=== PATIENT | male | born 2005 | race Caucasian/White ===

== ENCOUNTER 2025-06-03 16:54 | Inpatient (IN) | payer OTHER ==
[~2025-06-03] VITALS: Ht 180.3 cm; Wt 92.2 kg
[2025-06-03] MEDS: NS (Normal Saline) 0.9% 1,000 ML IV ONE ×2 (17:13→18:24)
[2025-06-03 17:26] LABS: PLATELET COUNT, AUTOMATED 236 10^3/uL (150-450)
[2025-06-03 17:45] LABS: CALCIUM LEVEL 10.3 MG/DL (8.5-10.1); CARBON DIOXIDE LEVEL 24.0 MMOL/L (20-31); CHLORIDE LEVEL 104.0 MMOL/L (98-107); CPK CREATINE PHOSPHOKINASE 1049.0 U/L (46-171); CREATININE FOR GFR 2.26 MG/DL (0.70-1.30); GLOMERULAR FILTRATION RATE 41.3 (>60); POTASSIUM SERUM 3.4 MMOL/L (3.5-5.1); SODIUM LEVEL 143.0 MMOL/L (136-145)
[2025-06-03] MEDS: POTASSIUM CHLORIDE 10MEQ SR TABLET PO ONE (18:45)
[2025-06-03] MEDS ORDERED: HOME MED LIST COMPLETE! XX SCH (19:25)
[2025-06-03] MEDS: NS (Normal Saline) 0.9% 1,000 ML IV SCH (19:35)
[2025-06-03 20:00] VITALS: TEMP 98.6
[2025-06-04 07:25] LABS: BASO # 0.0 10^3/uL (0.0-0.2); BASO % 0.2 % (0.0-1.0); EOS # 0.0 10^3/uL (0.0-0.5); EOS % 0.4 % (0.0-3.0); LYMPH # 2.8 10^3/uL (1.5-5.0); LYMPH % 35.2 % (24.0-44.0); MONO # 1.1 10^3/uL (0.0-0.8); MONO % 13.6 % (2.0-8.0); NEUTROPHILS # 4.1 10^3/uL (1.5-8.5); NEUTROPHILS % 50.2 % (36.0-66.0); PLATELET COUNT, AUTOMATED 186 10^3/uL (150-450)
[2025-06-04 07:54] LABS: CPK CREATINE PHOSPHOKINASE 1051 U/L (46-171)
[2025-06-04 07:59] LABS: ALT/SGPT 36 U/L (7.0-40); AST/SGOT 37 U/L (<34); CALCIUM LEVEL 8.4 MG/DL (8.5-10.1); CARBON DIOXIDE LEVEL 25 MMOL/L (20-31); CHLORIDE LEVEL 105 MMOL/L (98-107); CREATININE FOR GFR 1.06 MG/DL (0.70-1.30); GLOMERULAR FILTRATION RATE > 90.0 (>60); PHOSPHORUS LEVEL 3.5 MG/DL (2.5-4.9); POTASSIUM SERUM 3.6 MMOL/L (3.5-5.1); PTH INTACT 84.0 PG/ML (18.5-88.0); SODIUM LEVEL 141 MMOL/L (136-145); TOTAL 25(OH) VITAMIN D 32.4 NG/ML (20.0-100.0)
[2025-06-04] MEDS ORDERED: ENOXAPARIN 40 MG/0.4 ML SYRINGE (J1650 PER 10MG) SC SCH (09:00)
[2025-06-04 10:27] LABS: APPEARANCE, URINE HAZY (CLEAR); BACTERIA, URINE AUTO NEGATIVE (NEGATIVE); BILIRUBIN, URINE AUTO NEGATIVE (NEGATIVE); BLOOD, URINE BLOOD NEGATIVE (NEGATIVE); GLUCOSE, URINE (UA) AUTO NEGATIVE (NEGATIVE); KETONE, URINE AUTO NEGATIVE (NEGATIVE); LEUKOCYTE ESTERASE, URINE AUTO NEGATIVE (NEGATIVE); MUCUS, URINE SMALL (NEGATIVE); NITRITE, URINE AUTO NEGATIVE (NEGATIVE); PROTEIN, URINE AUTO NEGATIVE (NEGATIVE); RBC, URINE AUTO 1 /HPF (0-3); SPECIFIC GRAVITY URINE AUTO 1.020 (1.002-1.035); SQUAMOUS EPITHELIAL CELL UR AU 0 /HPF (0-6); UROBILINOGEN, URINE AUTO 0.2 mg/dL (0.0-2.0); WBC, URINE AUTO 1 /HPF (0-3)
[2025-06-04 12:00] VITALS: BP 129/71; O2SAT 100
[2025-06-04] MEDS: NS (Normal Saline) 0.9% 1,000 ML IV ONE ×2 (12:26→13:05)
[2025-06-04] MEDS ORDERED: HEPARIN SOD 5000 UNITS/ML 1 ML VIAL/SYRINGE SC SCH (14:00)
== END 2025-06-04 17:00 | disposition home or self-care (01) | DRG 557 ==
LOC: EDBD 16:54 → M ED 16:54 → M ED INP 19:31
PROVIDERS: ADMIT Internal Medicine Nephrology; ATTEND Internal Medicine Nephrology
DX: M62.82 Rhabdomyolysis (principal); G93.41 Metabolic encephalopathy; N17.9 Acute kidney failure, unspecified; T67.5XXA Heat exhaustion, unspecified, initial encounter; F17.200 Nicotine dependence, unspecified, uncomplicated; E83.52 Hypercalcemia; E87.6 Hypokalemia

== ENCOUNTER 2025-11-04 07:17 | Emergency (ER) | payer OTHER ==
[~2025-11-04] VITALS: Ht 180.3 cm; Wt 78.3 kg
[2025-11-04] MEDS: NS (Normal Saline) 0.9% 1,000 ML IV ONE (09:07)
[2025-11-04] MEDS: ONDANSETRON 4MG/2ML VIAL IV ONE (09:07)
[2025-11-04 09:27] LABS: BASO # 0.0 10^3/uL (0.0-0.2); BASO % 0.4 % (0.0-1.0); EOS # 0.0 10^3/uL (0.0-0.5); EOS % 0.4 % (0.0-3.0); LYMPH # 1.8 10^3/uL (1.5-5.0); LYMPH % 26.3 % (24.0-44.0); MONO # 0.7 10^3/uL (0.0-0.8); MONO % 10.6 % (2.0-8.0); NEUTROPHILS # 4.4 10^3/uL (1.5-8.5); NEUTROPHILS % 62.2 % (36.0-66.0); PLATELET COUNT, AUTOMATED 310 10^3/uL (150-450)
[2025-11-04 09:48] LABS: ALT/SGPT 163 U/L (7.0-40); AST/SGOT 89 U/L (<34); CALCIUM LEVEL 9.6 MG/DL (8.5-10.1); CARBON DIOXIDE LEVEL 29 MMOL/L (20-31); CHLORIDE LEVEL 100 MMOL/L (98-107); CREATININE FOR GFR 0.92 MG/DL (0.70-1.30); GLOMERULAR FILTRATION RATE > 90.0 (>60); MAGNESIUM LEVEL 1.7 MG/DL (1.8-2.4); POTASSIUM SERUM 4.0 MMOL/L (3.5-5.1); SODIUM LEVEL 139 MMOL/L (136-145)
[2025-11-04 09:54] LABS: CPK CREATINE PHOSPHOKINASE 335 U/L (46-171)
[2025-11-04] MEDS ORDERED: ISOVUE-370 76% 100 ML VIAL As Ordered ONE (10:07)
[2025-11-04] MEDS: PANTOPRAZOLE 40MG VIAL IV ONE (10:55)
[2025-11-04] MEDS: SUCRALFATE SUSP 1GM/10ML UD PO ONE (11:03)
[2025-11-04] MEDS: MAG SULF 1GM/100ML (MAG RUN) 1 GM in IV 1 EA IV ONE (11:04)
[2025-11-04 12:15] VITALS: BP 147/100; TEMP 97.1; O2SAT 96
[2025-11-04] MEDS ORDERED: PRED10TA2 PO (12:16)
[2025-11-04] MEDS ORDERED: SUCR1TA PO (12:16)
[2025-11-04] MEDS ORDERED: OMEP40CA4 PO (12:16)
[2025-11-04] MEDS ORDERED: ONDA-282 PO (12:16)
== END 2025-11-04 12:32 | disposition home or self-care (01) ==
LOC: M ED 07:17
DX: A09 Infectious gastroenteritis and colitis, unspecified (principal); Z79.52 Long term (current) use of systemic steroids; Z79.899 Other long term (current) drug therapy
CPT/HCPCS: 74177; 80048; 80076; 82550; 83690; 83735; 85025; 87486; 87581; 87633; 87798; 96361; 96365; 96375; 99284; J2405; J2470; J3475; Q9967